=== PATIENT | female | born 1945 | race Caucasian/White ===

== ENCOUNTER 2019-04-23 17:32 | Emergency (ER) | payer MEDICARE ==
[2019-04-23 17:39] VITALS: BP 146/74; PULSE 63; RESP 18; TEMP 97.9
--- NOTE | 2019-04-23 18:20 | XR ---
EXAMINATION TYPE: XR shoulder complete RT DATE OF EXAM: 04/23/2019 COMPARISON: NONE HISTORY: Pain TECHNIQUE: 3 views FINDINGS: There is a pain in the greater tuberosity of the humerus. Glenohumeral joint is anatomic. I see no fracture nor dislocation. IMPRESSION: Previous surgery. No acute abnormality of the right shoulder.
--- NOTE | 2019-04-23 18:54 | ED ---
General Adult HPI - General Chief complaint: Extremity Injury, Upper Stated complaint: Shoulder injury Time Seen by Provider: 04/23/19 17:50 Source: patient Mode of arrival: ambulatory Limitations: no limitations - History of Present Illness Initial comments: Patient is 74-year-old female presenting to the emergency department with a chief complaint of right shoulder pain. Patient reports she was washing dishes earlier today when she felt something "snap" and followed by pain. The incident occurred 3 hours ago. Patient reports the pain is located in the medial aspect of the right upper arm and radiates along to the elbow. Patient reports limited range of motion with elbow flexion and has limited range of motion with shoulder abduction above 90. Patient reports pain with palpation along the medial aspect of her right upper arm and is mostly located near the right axilla. Patient denies any numbness or tingling. Patient reports the pain is a 6 and sharp and is dependent on anatomical position. Patient denies taking medication to alleviate the symptoms. - Related Data Allergies Allergy/AdvReac Type Severity Reaction Status Date / Time Penicillins Allergy Unknown Verified 04/23/19 17:39 Review of Systems ROS Statement: Those systems with pertinent positive or pertinent negative responses have been documented in the HPI. ROS Other: All systems not noted in ROS Statement are negative. Past Medical History Past Medical History: Hypertension, Thyroid Disorder History of Any Multi-Drug Resistant Organisms: None Reported Past Surgical History: Appendectomy, Hysterectomy, Joint Replacement, Orthopedic Surgery, Tonsillectomy Additional Past Surgical History / Comment(s): carpel tunnel Past Psychological History: No Psychological Hx Reported Smoking Status: Never smoker Past Alcohol Use History: None Reported Past Drug Use History: None Reported General Exam Limitations: no limitations General appearance: alert, in no apparent distress Head exam: Present: atraumatic, normocephalic, normal inspection Eye exam: Present: normal appearance, PERRL, EOMI Pupils: Present: normal accommodation ENT exam: Present: normal exam, normal oropharynx, mucous membranes moist, TM's normal bilaterally, normal external ear exam Neck exam: Present: normal inspection, full ROM Respiratory exam: Present: normal lung sounds bilaterally Cardiovascular Exam: Present: regular rate, normal rhythm, normal heart sounds Extremities exam: Present: normal inspection (No bulging of the right bicep noted), tenderness (Tenderness along the medial aspect of the right upper arm), normal capillary refill, other (+2 ulnar radial pulses bilaterally.). Absent: full ROM (Limited range of motion with elbow flexion. Limited range of motion right shoulder abduction above 90.) Back exam: Present: normal inspection, full ROM. Absent: CVA tenderness (R), CVA tenderness (L) Neurological exam: Present: alert, oriented X3 Psychiatric exam: Present: normal affect, normal mood Skin exam: Present: warm, intact, normal color Course Vital Signs 04/23/19 17:36 Temperature 97.9 F Pulse Rate 63 Respiratory 18 Rate Blood Pressure 146/74 O2 Sat by Pulse 96 Oximetry Medical Decision Making - Medical Decision Making Patient is 74-year-old female presenting to emergency Department with a chief complaint right shoulder pain. Based on physical examination and history I suspect the patient to have injured her right bicep or coracobrachialis. Patient does have tenderness near the attachment points of those muscles. I didn't see any bulging or bicep muscle, the side of left suspicion of a brachial injury. X-rays unremarkable. Patient advised to alternate between Tylenol and ibuprofen for pain control. Patient given ibuprofen in the ED for pain control. Patient advised to follow with orthopedics for further management. Strict return parameters were thoroughly discussed with patient was understanding and agreeable. Case discussed physician. Disposition Clinical Impression: Arm pain, right Disposition: HOME SELF-CARE Condition: Stable Instructions (If sedation given, give patient instructions): Repairs of the Biceps and Triceps Tendons (DC), Biceps Tenodesis (DC) Additional Instructions: Please follow up with orthopedics. Alternate between Tylenol and ibuprofen for pain control. Please return to emergency department if symptoms worsen. Is patient prescribed a controlled substance at d/c from ED?: No Referrals: Jose F Sandoval MD [Primary Care Provider] - 1-2 days Milton Anand DO [Medical Doctor] - 1-2 days Time of Disposition: 18:53
== END 2019-04-23 19:01 | disposition home or self-care (01) ==
LOC: EC 17:32
DX: M25.511 Pain in right shoulder (principal); Z96.698 Presence of other orthopedic joint implants; Z88.0 Allergy status to penicillin
CPT/HCPCS: 99283

== ENCOUNTER 2019-10-13 12:16 | Day surgery (SDC) | payer MEDICARE ==
[2019-10-07 09:38] VITALS: BMI 40.3
[~2019-10-13 12:16] MED LIST: ACETAMINOPHEN TAB 500 MG TAB PO ONE; GABAPENTIN 300 MG CAP PO ONE; HYDROmorphone 0.5 MG/0.5 ML SYRINGE IVP PRN; LIDOCAINE 1% 20 ML VIAL (10MG/ML) FOR IV START INTRADERMA PRN; MELOXICAM 7.5 MG TAB PO ONE; ONDANSETRON 4 MG/2 ML VIAL IVP ONE; ROPIVACAINE 246.25 MG, EPINEPHrine 0.5 MG, KETOROLAC 30 MG, cloNIDine HCL/PF 80 MCG, WA... MISCELLANE ONE; TRANEXAMIC ACID 1,000 MG in SODIUM CHLORIDE 0.9% 100 ML IVPB ONE
[2019-10-13] MEDS: LACTATED RINGERS 1,000 ML IV SCH ×2 (12:49→20:14)
[2019-10-13] MEDS ORDERED: DEXAMETHASONE SOD PHOSPHATE 10 MG/ML 1 ML VIAL IV ONE (12:49)
[2019-10-13] MEDS ORDERED: MIDAZOLAM 2 MG/2 ML VIAL IVP ONE (13:04)
[2019-10-13] MEDS ORDERED: fentaNYL (PF) 50 MCG/ML 2 ML AMP IVP ONE (13:05)
[2019-10-13] MEDS ORDERED: ROPIVACAINE 0.2%-NS ON-Q PUMP 1,090 MG, EMPTY PAIN BALL 1 EACH MISCELLANE PRN (13:33)
--- NOTE | 2019-10-13 13:35 | P.ANPRN ---
Procedure Note - Anesthesia - Nerve Block Performed Left Adductor Canal Infusion Time Out Performed: Yes Date of Procedure: 10/13/19 Procedure Start Time: 13:05 Procedure Stop Time: 13:14 Location of Patient: PreOp Indication: Acute Post-Operative Pain, Requested by Surgeon Specifically requested for management of pain by : Barry Rob Sedation Type: Sedate with meaningful contact maintained Preparation: Sterile Prep Position: Supine Catheter Depth at Skin (cm): 8 Catheter: Indwelling Needle Types: Pajunk Needle Gauge: 18 Ultrasound used to visualize needle placement: Yes Ultrasound used to observe medication spread: Yes Injectate: 0.5% Ropivacaine (see comment for volume) (20cc) Blood Aspirated: No Pain Paresthesia on Injection Noted: No Resistance on Injection: Normal Image Stored and Saved: Yes Events: Uneventful and Well Tolerated
[2019-10-13] MEDS ORDERED: SODIUM CHLORIDE 0.9% 100 ML BAG ONE (14:08)
[2019-10-13] MEDS ORDERED: diphenhydrAMINE 50 MG/ML 1 ML VIAL ONE (14:08)
[2019-10-13] MEDS ORDERED: KETAMINE 10 MG/ML 20 ML VIAL ONE (14:08)
[2019-10-13] MEDS ORDERED: TRANEXAMIC ACID 1,000 MG/10 ML VIAL ONE (14:08)
[2019-10-13] MEDS ORDERED: PROPOFOL 10 MG/ML 20 ML VIAL IV ONE (14:08)
[2019-10-13] MEDS ORDERED: fentaNYL (PF) 50 MCG/ML 2 ML AMP ONE (14:08)
[2019-10-13] MEDS ORDERED: MIDAZOLAM 2 MG/2 ML VIAL ONE (14:08)
--- NOTE | 2019-10-13 15:48 | P.OP ---
Date of Procedure: 10/13/19 Preoperative Diagnosis: Severe osteoarthritis left knee Postoperative Diagnosis: Severe osteoarthritis left knee Procedure(s) Performed: Left total knee arthroplasty using Visionaire patient specific guides Implants: Pak and Nephew Cruciate Retaining Journey II CR Oxinium Femoral Component size 6, left Pak & Nephew Journey Nonporous Tibial Baseplate size 4, left Pak & Nephew Journey II CR, XLPE Articular Insert, 9 mm, size 3-4 Pak & Nephew Merry II Resurfacing Patellar Component, Oval, 29 mm All components were cemented using Palacose R bone cement. Visionaire patient specific guides The articulation is Oxinium on polyethylene. Anesthesia: spinal Surgeon: Barry Rob Head Turbine Operator #1: Aysha Bello Estimated Blood Loss (ml): 25 Pathology: other (Bone and cartilage) Condition: stable Disposition: PACU Indications for Procedure: After failure of conservative treatment we discussed the surgical and nonsurgical treatment options at length. Patient wishes to proceed with a total knee arthroplasty. Complications specific to this procedure were discussed at length, including but not limited to infection, bleeding, stiffness, and nerve injury. Patient is aware of all these complications and informed consent was obtained Operative Findings: The operative findings are consistent with severe osteoarthritis of the left knee Description of Procedure: Patient was seen in the preoperative area consent was reviewed and operative site was marked with a skin marker. An adductor canal pain catheter was placed by anesthesia in the preoperative area. Patient was then brought to the operating room and given preoperative antibiotics intravenously. A spinal anesthetic was administered by the anesthesia department. A tourniquet was plac ed on the upper thigh and the lower extremity was prepped and draped in usual sterile fashion. A gram of transexamic acid was given. A universal timeout was then performed which confirmed the patient's name, surgical site, ALLERGIES, and consent. The lower extremity was then exsanguinated and tourniquet was inflated to 250 mmHg. A standard and anterior midline approach to the knee was performed. The skin and subcutaneous tissue was dissected down to the patellar tendon. A medial parapatellar arthrotomy was then performed. The knee was then extended, the patellar was everted, and the knee was again flexed. Anterior horns of both menisci were excised, and a release was performed to the posterior medial aspect of the knee. On gross visual inspection, there was complete loss of articular cartilage in the medial and patellofemoral joint spaces. There was also significant cartilage damage in the lateral compartment. There were multiple periarticular osteophytes. The patient specific guide was placed on the distal femur, and pinned in place. Using the patient specific guide, the distal femoral cut was performed. The cutting block was then removed and the cut was checked for flatness. The appropriate 5-in-1 cutting block was then pinned in place through the holes that were drilled through the patient specific guide. The anterior condyles were cut without notching. The posterior and chamfer cuts were performed while protecting the collateral ligaments. The cutting block was then removed. Attention was then directed to the tibia. The remaining ACL was removed with a Ronguer, and the tibia was then gently subluxed forward with a large bent knee retractor. Any remaining menisci was excised. The posterior lateral corner was cauterized in order to cauterize the lateral geniculate artery. The patient specific guide for the tibia was then placed and was held in place with pins. Pinholes were then placed for rotation of the tibial component as well. Proximal tibia was then cut and sized. Next trials were then placed with the appropriate-sized insert. The knee was able to fully extend and flex to 130 and was stable throughout all range of motion. The knee was then extended, patella everted. Patella was then measured, and then using an osteotomy guide, the patella was cut at the appropriate level. The patella was then measured and drilled and the patella trial was then placed. The knee was then taken through range of motion with the patella trial and the patella tracked normally. The knee was then extended patella trial was then removed and the patella was everted. Knee was then flexed and lug holes were drilled through the femoral trial and the femoral trial was then removed. The tibial was then exposed, and the tibial broach guide was then pinned in place after it was set for the appropriate rotation to allow for the most coverage without overhang. The tibia was then reamed and broached. The cut surfaces of bone were then irrigated with pulsatile lavage. The posterior structures were injected with the ropivacaine solution. The knee was also irrigated with Irrisept solution. The components were then opened, the cement was mixed, and the components were then cemented in place. The cement was allowed to harden with the knee in full extension. While the cement was hardening, the remaining soft tissues were then injected with a ropivacaine solution, which consisted of 246.25 mg of ropivacaine, 0.5 mg of epinephrine, 30 mg of Toradol, 80 g of clonidine, and 48.45 mL of sterile water, for a total of 100 mL of fluid injected. After the cemented hardened. The tourniquet was released, and hemostasis was obtained. A second gram of transexamic acid was given. The knee was again irrigated. The knee was again taken through range of motion and found to be stable throughout all range of motion of 0-130, and the patella tracked normally. The fascia was then closed with #2 strata fix suture. The subcutaneous tissue was closed with 3-0 Vicryl and 3-0 strata fix. Dermabond glue was used for the skin and placed with the knee in flexion. The patient was placed in a sterile silver dressing. Patient was then transferred to recovery room in stable condition. The construction administrative assistant Aysha Bello NP was required due the complexity surgery and the need for a skilled accountant assistant. She assisted in positioning, draping, retraction, and closure of the wound.
[2019-10-13] MEDS ORDERED: LACTATED RINGERS 1,000 ML IV ONE (15:55)
[2019-10-13] MEDS ORDERED: TEMAZEPAM 15 MG CAP PO PRN (16:14)
[2019-10-13] MEDS ORDERED: ONDANSETRON 4 MG/2 ML VIAL IVP PRN (16:14)
[2019-10-13] MEDS ORDERED: BISACODYL 10 MG SUPP RECTAL PRN (16:14)
[2019-10-13] MEDS ORDERED: HYDROmorphone 0.5 MG/0.5 ML SYRINGE IVP PRN ×3 (16:14)
[2019-10-13] MEDS ORDERED: NA PHOS,M-B/NA PHOS,DI-BA 133 ML ENEMA RECTAL PRN (16:14)
[2019-10-13] MEDS ORDERED: HYDROcodone/APAP 5-325MG 1 EACH TAB PO PRN (16:14)
[2019-10-13] MEDS ORDERED: MAGNESIUM HYDROXIDE 2,400 MG/10 ML CUP PO PRN (16:14)
[2019-10-13] MEDS ORDERED: hydrOXYzine PAMOATE 25 MG CAP PO PRN (16:14)
[2019-10-13] MEDS ORDERED: NALOXONE 0.4 MG/ML 1 ML VIAL IV PRN (16:14)
--- NOTE | 2019-10-13 16:37 | XR ---
EXAMINATION TYPE: XR knee limited LT DATE OF EXAM: 10/13/2019 COMPARISON: NONE HISTORY: 74-year-old female status post DKA, assess surgical alignment TECHNIQUE: None FINDINGS: Images show placement of left total knee arthroplasty. The distal femoral and proximal tibial compone nts of the prosthesis are well seated without periprosthetic fracture. Anterior soft tissue swelling with scattered soft tissue air as well as intra-articular air compatible with recent operation. Align ment grossly anatomic. IMPRESSION: Uncomplicated postoperative appearance left total knee arthroplasty.
[2019-10-13] MEDS: ASPIRIN 325 MG TAB PO SCH (20:26)
[2019-10-13] MEDS: HYDROcodone/APAP 5-325MG 1 EACH TAB PO PRN (20:27)
[2019-10-13] MEDS ORDERED: SENNOSIDES-DOCUSATE SODIUM 1 EACH TAB PO SCH (21:00)
[2019-10-13] MEDS ORDERED: METOPROLOL TARTRATE 50 MG TAB PO SCH (21:00)
[2019-10-14] MEDS: LACTATED RINGERS 1,000 ML IV SCH ×3 (02:20→06:21)
[2019-10-14 03:34] VITALS: TEMP 97.9
[2019-10-14] MEDS ORDERED: LEVOTHYROXINE 137 MCG TAB PO SCH (06:30)
[2019-10-14 07:40] VITALS: BP 126/70; PULSE 66; RESP 16
[2019-10-14] MEDS: ASPIRIN 325 MG TAB PO SCH (08:18)
[2019-10-14] MEDS: HYDROcodone/APAP 5-325MG 1 EACH TAB PO PRN ×2 (08:18→12:18)
--- NOTE | 2019-10-14 08:31 | P.DS ---
Providers Expected date of discharge: 10/14/19 Attending physician: Barry Rob Consults: 10/13/19 16:14 Consult Physician Routine Consulting Provider: Carmenza Quinones Consult Reason/Comments: medical management Do you want consulting provider notified?: Yes Primary care physician: Jose F Sandoval - Discharge Diagnosis(es) (1) Primary osteoarthritis of left knee Current Visit: Yes Status: Acute (2) Status post left knee replacement Current Visit: Yes Status: Acute Hospital Course: This is a pleasant 74-year-old female last seen in our office with complaints of left knee pain. Patient has known history of degenerative arthritis of the left knee and presented to discuss options. After discussion and consideration, the patient elected to proceed with a left total knee arthroplasty. Patient was seen preoperatively, and medically cleared for surgery by her primary care physician. Patient was admitted to [facility] underwent left total knee arthroplasty on 10/13/[address] Barry Rob. The procedure was performed without complications or sequelae. The patient is seen and evaluated at bedside today. Pain is well-controlled. Patient has no new complaints today and denies any fevers, chills, nausea, vomiting, or shortness of breath. Vital signs are stable. Dressing is clean dry and intact. Incision looks fine with no erythema or active drainage. Calf is soft and nontender. Patient has full foot and ankle motion without difficulty. Patient's left lower extremity is neurovascularly intact. The patient is orthopedically stable for discharge today. Pertinent Studies: Laboratory Tests 10/14/19 07:51 WBC 21.0 H RBC 4.19 Hgb 12.6 Hct 39.4 Neutrophils # 17.9 H Monocytes # 1.3 H Patient Condition at Discharge: Stable Plan - Discharge Summary Discharge Rx Participant: Yes New Discharge Prescriptions: New Aspirin 325 mg PO BID #60 tab Sennosides-Docusate Sodium [Senokot-S] 2 tab PO DAILY #30 tablet HYDROcodone/APAP 5-325MG [Clifton 5] 1 - 2 each PO Q4-6H PRN #56 tab PRN Reason: Pain No Action Ibuprofen [Motrin] 800 mg PO BID Oxybutynin ER [Ditropan Xl] 15 mg PO QAM Metoprolol Tartrate [Lopressor] 50 mg PO HS Levothyroxine Sodium [Synthroid] 137 mcg PO QAM Vitamin E (Unknown Dose) 1 tab PO BID Lulu-3 Fatty Acids/Fish Oil [Fish Oil 1,000 mg Softgel] 1 each PO BID Hydrochlorothiazide 12.5 mg PO QAM Felodipine [Felodipine ER] 10 mg PO QAM Discharge Medication List Felodipine [Felodipine ER] 10 mg PO QAM 10/07/19 [History] Hydrochlorothiazide 12.5 mg PO QAM 10/07/19 [History] Ibuprofen [Motrin] 800 mg PO BID 10/07/19 [History] Levothyroxine Sodium [Synthroid] 137 mcg PO QAM 10/07/19 [History] Metoprolol Tartrate [Lopressor] 50 mg PO HS 10/07/19 [History] Lulu-3 Fatty Acids/Fish Oil [Fish Oil 1,000 mg Softgel] 1 each PO BID 10/07/19 [History] Oxybutynin ER [Ditropan Xl] 15 mg PO QAM 10/07/19 [History] Vitamin E (Unknown Dose) 1 tab PO BID 10/07/19 [History] Aspirin 325 mg PO BID #60 tab 10/13/19 [Rx] Sennosides-Docusate Sodium [Senokot-S] 2 tab PO DAILY #30 tablet 10/13/19 [Rx] HYDROcodone/APAP 5-325MG [Clifton 5] 1 - 2 each PO Q4-6H PRN #56 tab 10/14/19 [Rx] Follow up Appointment(s)/Referral(s): Jose F Sandoval MD [Primary Care Provider] - 10/21/19 10:30 am [facility], [NON-STAFF] - As Needed Barry Rob DO [Doctor of Osteopathic Medicine] - 10/26/19 9:30 am Ambulatory/Diagnostic Orders: Continuous Passive Motion (CPM) Machine [DME.AMB1] Time Frame: 3 Weeks, Location: None Selected Patient Instructions/Handouts: *Surgery [facility] - On-Q Pain Pump Discharge Instructions, Knee Replacement (DC) Activity/Diet/Wound Care/Special Instructions: Weightbearing as tolerated with walker Keep dressing in place for 10 days unless saturated Aspirin 325 mg twice a day May shower over dressing CPM 5-6 hours daily Follow up with Dr. Barry Rob in 2 weeks. Call [facility] with questions or concerns, Discharge Disposition: HOME WITH HOME HEALTH SERVICES
[2019-10-14 08:52] LABS: Basophils % (A) 0 %; Eosinophils % (A) 0 %; HCT 39.4 % (34.0-46.0); HGB 12.6 gm/dL (11.4-16.0); Lymphocytes # (A) 1.6 k/uL (1.0-4.8); Lymphocytes % (A) 8 %; MCH 30.2 pg (25.0-35.0); MCHC 32.1 g/dL (31.0-37.0); MCV 94.1 fL (80.0-100.0); Monocytes # (A) 1.3 k/uL (0-1.0); Monocytes % (A) 6 %; Neutrophils # (A) 17.9 k/uL (1.3-7.7); Neutrophils % (A) 85 %; Platelet Count 257 k/uL (150-450); RBC 4.19 m/uL (3.80-5.40); RDW 12.6 % (11.5-15.5)
[2019-10-14] MEDS ORDERED: OXYBUTYNIN 15 MG TAB.ER.24 PO SCH (09:00)
[2019-10-14] MEDS ORDERED: amLODIPine 10 MG TAB PO SCH (09:00)
--- NOTE | 2019-10-14 11:34 | P.CONS ---
History of Present Illness - Reason for Consult Recommendations regarding and her present medications-leukocytosis - History of Present Illness Patient is pleasant 74-year-old the female admitted for right knee arthroplasty source N surgery patient is currently doing well is being discharged today. Patient the blood pressure is fairly stable patient was already started on amlodipine asked her to hold off on hydrochlorothiazide as she expected to have low blood pressure for next couple days. She'll hold off this medication for next couple days patient denied any fever chills dysuria cough no evidence of infection patient does have leukocytosis which is secondary to surgery. Review of Systems REVIEW OF SYSTEMS: CONSTITUTIONAL: No fever, no malaise, no fatigue. HEENT: No recent visual problems or hearing problems. Denied any sore throat. CARDIOVASCULAR: No chest pain, orthopnea, PND, no palpitations, no syncope. PULMONARY: No shortness of breath, no cough, no hemoptysis. GASTROINTESTINAL: No diarrhea, no nausea, no vomiting, no abdominal pain. NEUROLOGICAL: No headaches, no weakness, no numbness. HEMATOLOGICAL: Denies any bleeding or petechiae. GENITOURINARY: Denies any burning micturition, frequency, or urgency. MUSCULOSKELETAL/RHEUMATOLOGICAL: Denies any joint pain, swelling, or any muscle pain. ENDOCRINE: Denies any polyuria or polydipsia. The rest of the 14-point review of systems is negative. Past Medical History Past Medical History: Hypertension, Osteoarthritis (OA), Thyroid Disorder Additional Past Medical History / Comment(s): Vasular Dermatitis. Slight Vertigo. History of Any Multi-Drug Resistant Organisms: None Reported Past Surgical History: Appendectomy, Cholecystectomy, Hysterectomy, Joint Replacement, Orthopedic Surgery, Tonsillectomy Additional Past Surgical History / Comment(s): Bilateral carpel tunnel, right shoulder surgery, right foot surgery, right hip replacement. Past Anesthesia/Blood Transfusion Reactions: Previous Problems w/ Anesthesia Additional Past Anesthesia/Blood Transfusion Reaction / Comm: "Anesthesia went too far up and my arms went numb with hip surgery." Past Psychological History: No Psychological Hx Reported Smoking Status: Never smoker Past Alcohol Use History: None Reported Past Drug Use History: None Reported - Past Family History Mother Family Medical History: Cancer Father Family Medical History: Cancer Medications and Allergies Home Medications Medication Instructions Recorded Confirmed Type Felodipine [Felodipine ER] 10 mg PO QAM 10/07/19 10/13/19 History Hydrochlorothiazide 12.5 mg PO QAM 10/07/19 10/07/19 History Ibuprofen [Motrin] 800 mg PO BID 10/07/19 10/07/19 History Levothyroxine Sodium [Synthroid] 137 mcg PO QAM 10/07/19 10/07/19 History Metoprolol Tartrate [Lopressor] 50 mg PO HS 10/07/19 10/13/19 History Glendora-3 Fatty Acids/Fish Oil [Fish 1 each PO BID 10/07/19 10/07/19 History Oil 1,000 mg Softgel] Oxybutynin ER [Ditropan Xl] 15 mg PO QAM 10/07/19 10/13/19 History Vitamin E (Unknown Dose) 1 tab PO BID 10/07/19 10/07/19 History Aspirin 325 mg PO BID #60 tab 10/13/19 Rx Sennosides-Docusate Sodium 2 tab PO DAILY #30 tablet 10/13/19 Rx [Senokot-S] HYDROcodone/APAP 5-325MG [Shannon 5] 1 - 2 each PO Q4-6H PRN #56 tab 10/14/19 Rx Allergies Allergy/AdvReac Type Severity Reaction Status Date / Time Penicillins Allergy Unknown Verified 10/13/19 12:32 Surgical Tape Allergy Rash/Hives Uncoded 10/13/19 12:32 Physical Exam Vitals: Vital Signs Temp Pulse Pulse Resp BP BP BP 10/14/19 09:40 16 10/14/19 07:10 97.9 F 66 16 126/70 10/14/19 02:35 97.9 F 61 18 112/63 10/13/19 19:26 73 112/59 10/13/19 19:10 77 121/69 10/13/19 18:55 72 119/70 10/13/19 18:40 70 119/70 10/13/19 18:26 69 115/65 10/13/19 18:10 70 116/65 10/13/19 17:55 70 104/58 10/13/19 17:42 69 10/13/19 17:25 70 116/67 10/13/19 17:12 97.5 F L 67 109/63 10/13/19 16:45 68 15 108/58 10/13/19 16:30 67 16 97/54 10/13/19 16:24 69 16 98/57 10/13/19 16:09 97.2 F L 70 14 90/52 10/13/19 13:22 61 17 130/60 10/13/19 12:44 97.6 F 70 17 131/63 Pulse Ox 10/14/19 09:40 10/14/19 07:10 92 L 10/14/19 02:35 93 L 10/13/19 19:26 10/13/19 19:10 10/13/19 18:55 95 10/13/19 18:40 95 10/13/19 18:26 95 10/13/19 18:10 94 L 10/13/19 17:55 96 10/13/19 17:42 10/13/19 17:25 97 10/13/19 17:12 92 L 10/13/19 16:45 97 10/13/19 16:30 98 10/13/19 16:24 97 10/13/19 16:09 96 10/13/19 13:22 97 10/13/19 12:44 95 Intake and Output 10/13/19 10/14/19 10/14/19 22:59 06:59 14:59 Intake Total 200 Output Total 350 Balance -150 Intake: IV 200 Output: Urine 325 Estimated Blood Loss 25 Other: # Voids 2 Weight 113.398 kg PHYSICAL EXAMINATION: GENERAL: The patient is alert and oriented x3, not in any acute distress. Well developed, well nourished. HEENT: Pupils are round and equally reacting to light. EOMI. No scleral icterus. No conjunctival pallor. Normocephalic, atraumatic. No pharyngeal erythema. No thyromegaly. CARDIOVASCULAR: S1 and S2 present. No murmurs, rubs, or gallops. PULMONARY: Chest is clear to auscultation, no wheezing or crackles. ABDOMEN: Soft, nontender, nondistended, normoactive bowel sounds. No palpable organomegaly. MUSCULOSKELETAL: No joint swelling or deformity. Deferred to orthopedic surgery EXTREMITIES: No cyanosis, clubbing, or pedal edema. NEUROLOGICAL: Gross neurological examination did not reveal any focal deficits. SKIN: No rashes. Results CBC & Chem 7: 10/14/19 07:51 Labs: Abnormal Lab Results - Last 24 Hours (Table) 02/26/20 Range/Units 07:51 WBC 21.0 H (3.8-10.6) k/uL Neutrophils # 17.9 H (1.3-7.7) k/uL Monocytes # 1.3 H (0-1.0) k/uL Assessment and Plan Plan: -Leukocytosis without any evidence of infection: Patient will not need any further testing and this is reactive secondary to surgery. -Hypertension further management as mentioned above patient can be discharged from medical perspective patient is clinically doing well -Hypothyroidism
--- NOTE | 2019-10-14 13:39 | P.PN ---
Progress Note - Text 10/14 658am 74 year old female s/p tkr by Dr Barry Rob. pt has an on-q pump infusion running at 8cc/hr with a vas of 0. plan to continue infusion.
== END 2019-10-14 12:43 | disposition home health service (06) ==
LOC: OR 12:16 → 4SSUR 16:06 → OR 10-14 12:43
PROVIDERS: ATTEND Orthopaedic Surgery
DX: M17.12 Unilateral primary osteoarthritis, left knee (principal); E03.9 Hypothyroidism, unspecified; I11.9 Hypertensive heart disease without heart failure; E78.5 Hyperlipidemia, unspecified; R42 Dizziness and giddiness; L30.8 Other specified dermatitis; E66.9 Obesity, unspecified; Z68.41 Body mass index [BMI] 40.0-44.9, adult; Z90.710 Acquired absence of both cervix and uterus; Z90.49 Acquired absence of other specified parts of digestive tract; Z96.641 Presence of right artificial hip joint; Z98.890 Other specified postprocedural states; Z97.2 Presence of dental prosthetic device (complete) (partial); Z83.3 Family history of diabetes mellitus; Z82.49 Family history of ischemic heart disease and other diseases of the circulatory system; Z79.1 Long term (current) use of non-steroidal anti-inflammatories (NSAID); Z79.82 Long term (current) use of aspirin; Z79.890 Hormone replacement therapy; Z79.891 Long term (current) use of opiate analgesic; Z79.899 Other long term (current) drug therapy; Z88.6 Allergy status to analgesic agent; Z88.0 Allergy status to penicillin; Z91.09 Other allergy status, other than to drugs and biological substances
CPT/HCPCS: 97161; 64448; 76942; 85025; 88300; 73560; 27447; C1713; C1776; J2250; J0171; J1200; J1100; J0690 ×2; J2405; J3010; J1885; J2795 ×2; J2704; J0735

== ENCOUNTER 2022-06-08 08:41 | Day surgery (SDC) | payer MEDICARE ==
[2022-06-06 12:40] VITALS: BMI 41.5
[~2022-06-08 08:41] MED LIST changes: -ACETAMINOPHEN TAB 500 MG TAB PO ONE; +DEXAMETHASONE SOD PHOSPHATE 4 MG/ML 1 ML VIAL IV ONE; -GABAPENTIN 300 MG CAP PO ONE; +LACTATED RINGERS 1,000 ML IV SCH; -LIDOCAINE 1% 20 ML VIAL (10MG/ML) FOR IV START INTRADERMA PRN; -MELOXICAM 7.5 MG TAB PO ONE; +MIDAZOLAM 2 MG/2 ML VIAL IV PRN; +Pre Op ABX Message 1 EACH MISC MISCELLANE ONE; -ROPIVACAINE 246.25 MG, EPINEPHrine 0.5 MG, KETOROLAC 30 MG, cloNIDine HCL/PF 80 MCG, WA... MISCELLANE ONE; -TRANEXAMIC ACID 1,000 MG in SODIUM CHLORIDE 0.9% 100 ML IVPB ONE
[2022-06-08 09:21] VITALS: TEMP 97.4
[2022-06-08] MEDS ORDERED: LACTATED RINGERS 1,000 ML IV ONE (09:30)
[2022-06-08] MEDS ORDERED: MIDAZOLAM 2 MG/2 ML VIAL IVP ONE (09:37)
[2022-06-08] MEDS ORDERED: fentaNYL (PF) 50 MCG/ML 2 ML AMP IVP ONE (09:37)
[2022-06-08] MEDS ORDERED: SUCCINYLCHOLINE CHLORIDE 200 MG/10 ML VIAL IV ONE (10:09)
[2022-06-08] MEDS ORDERED: SODIUM CHLORIDE 0.9% (PF) 10 ML VIAL ONE (10:09)
[2022-06-08] MEDS ORDERED: fentaNYL (PF) 50 MCG/ML 2 ML AMP ONE (10:09)
[2022-06-08] MEDS ORDERED: MIDAZOLAM 2 MG/2 ML VIAL ONE (10:09)
[2022-06-08] MEDS ORDERED: ROPIVACAINE 5 MG/ML 30 ML VIAL ONE (10:09)
[2022-06-08] MEDS ORDERED: ePHEDrine 50 MG/ML 1 ML VIAL ONE (10:09)
[2022-06-08] MEDS ORDERED: LIDOCAINE 2% INJ 20 MG/ML (2 ML VIAL) ONE (10:09)
[2022-06-08] MEDS ORDERED: PROPOFOL 10 MG/ML 20 ML VIAL IV ONE (10:09)
[2022-06-08] MEDS ORDERED: ceFAZolin 1,000 MG in SODIUM CHLORIDE 0.9% 1,000 ML IRRIGATION ONE (10:14)
[2022-06-08] MEDS ORDERED: SODIUM CHLORIDE 0.9% 50 ML with ceFAZolin 2,000 MG IV ONE ×2 (10:14)
--- NOTE | 2022-06-08 11:28 | P.ANPRN ---
Procedure Note - Anesthesia - Nerve Block Performed Right Popliteal Single Time Out Performed: Yes ([id number]) Date of Procedure: 06/08/22 Procedure Start Time: :37 Procedure Stop Time: :42 Location of Patient: PreOp Indication: Acute Post-Operative Pain, Requested by Surgeon Specifically requested for management of pain by DrJackie: Harsh White Sedation Type: Sedate with meaningful contact maintained Preparation: Sterile Prep Position: Supine Catheter: None Needle Types: Pajunk Needle Gauge: 21 Ultrasound used to visualize needle placement: Yes Ultrasound used to observe medication spread: Yes Injectate: 0.5% Ropivacaine (see comment for volume) (15cc + 10cc nacl pf) Blood Aspirated: No Pain Paresthesia on Injection Noted: No Resistance on Injection: Normal Image Stored and Saved: Yes Events: Uneventful and Well Tolerated
--- NOTE | 2022-06-08 11:29 | P.ANPRN ---
Procedure Note - Anesthesia - Nerve Block Performed Right Adductor Canal Single Time Out Performed: Yes ([id number]) Date of Procedure: 06/08/22 Procedure Start Time: :43 Procedure Stop Time: :45 Location of Patient: PreOp Indication: Acute Post-Operative Pain, Requested by Surgeon Specifically requested for management of pain by DrJackie: Harsh White Sedation Type: Sedate with meaningful contact maintained Preparation: Sterile Prep Position: Supine Catheter: None Needle Types: Pajunk Needle Gauge: 21 Ultrasound used to visualize needle placement: Yes Ultrasound used to observe medication spread: Yes Injectate: 0.5% Ropivacaine (see comment for volume) (15cc+ 10cc nacl pf) Blood Aspirated: No Pain Paresthesia on Injection Noted: No Resistance on Injection: Normal Image Stored and Saved: Yes Events: Uneventful and Well Tolerated
[2022-06-08 12:37] VITALS: BP 124/73; PULSE 66; RESP 18
--- NOTE | 2022-06-15 15:14 | P.OP ---
Date of Procedure: 06/08/22 Preoperative Diagnosis: Peroneal tendinitis right ankle Postoperative Diagnosis: 1. Same 2. Osteophyte right calcaneus Procedure(s) Performed: 1. Secondary repair peroneus longus tendon right ankle 2. Partial excision of bone right calcaneus Implants: None Anesthesia: PRIYANKA Surgeon: Harsh White Estimated Blood Loss (ml): 1 Pathology: none sent Condition: stable Disposition: PACU Description of Procedure: Prior to the patient being brought to the operative room, anesthesia administered nerve block on the right lower extremity. The patient was then brought into the operative room and placed on table supine position. Timeout was taken to confirm correct patient identifiers, correct the laterality of surgery, and correct procedure. When all staff in the room were in agreement with the timeout, the patient was induced and placed under general anesthesia. A well-padded tourniquet was placed on the right thigh and a bump underneath the right hip to internally rotate the right leg. The right foot was then prepped and draped usual manner. Attention was directed over the lateral aspect of the ankle where an incision was made over the peroneal tendons from just proximal to the tip of the fibula to the anterior process of the calcaneus. The incision was deepened down to the subcutaneous layer, careful to identify, avoid, and retract any neurovascular structures and cauterize any bleeding vessels. Blunt dissection was continued down to the level the peroneal tendon sheath. The peroneal tendon sheath was opened along the entire length of the skin incision but not including the gil over the peroneal tubercle on the calcaneus. Immediately noticed just distal to the peroneal tubercle of the calcaneus, was a large osseous fragment that was adhered was soft tissue to the anterior process the calcaneus. This portion of bone glide between the peroneal tendons. The peroneal tendons were retracted and the bony fragment carefully excised. There were no roughened edges on the lateral side of the anterior process of the calcaneus and when indicated all fracture or an osteophyte. Then both peroneal tendons were inspected proximal to the peroneal tubercle. There was a small split longitudinal tear with some thickening of the Proteus longus tendon. The peroneus brevis tendon showed no pathology. Therefore the abnormal tissue was sharply debrided with a scalpel for the Proteus longus tendon. 2-0 Vicryl was then used to re-tubularize the tendon. Both tendons were placed back in the peroneal groove of the fibula and then the ankle taken through range of motion. There was smooth excursion of the tendons to the area with no subluxation. The wound is thoroughly irrigated with antibiotic saline. The peroneal retinaculum was repaired first with 0 Vicryl. Once that was completed the peroneal tendons taken through range of motion and make sure that they were fully locked into the peroneal groove. Once satisfied that there were properly repaired the rest of the retinaculum was closed with 0 Vicryl. Subcutaneous closure was done with 4-0 Monocryl and skin closure done with 3-0 Stratafix in a running subarticular manner dermal glue and Steri- Strips are placed across incision. An Arthrex jumpstart dressing was placed over the incision and then a dry sterile dressing to the right foot and ankle. The tourniquet was released and capillary refill return to all digits on the right foot. The patient's placed a well-padded, well molded plaster posterior mold/sugar tong splint. Ankle was held in neutral position as it dried. Once dry, anesthesia was reversed and the patient was taken recovery with vital signs stable
== END 2022-06-08 13:15 | disposition home or self-care (01) ==
LOC: OR 08:41
PROVIDERS: ATTEND Podiatrist
DX: M76.71 Peroneal tendinitis, right leg (principal); G89.18 Other acute postprocedural pain; M25.774 Osteophyte, right foot; I10 Essential (primary) hypertension; N28.9 Disorder of kidney and ureter, unspecified; E78.5 Hyperlipidemia, unspecified; E03.9 Hypothyroidism, unspecified; R21 Rash and other nonspecific skin eruption; R42 Dizziness and giddiness; Z79.899 Other long term (current) drug therapy; Z88.0 Allergy status to penicillin; Z88.5 Allergy status to narcotic agent; Z91.040 Latex allergy status; Z98.890 Other specified postprocedural states; Z90.49 Acquired absence of other specified parts of digestive tract; Z90.710 Acquired absence of both cervix and uterus; Z83.3 Family history of diabetes mellitus; Z82.49 Family history of ischemic heart disease and other diseases of the circulatory system
CPT/HCPCS: 28200; 28120; 64447; 64445; 76942; J2250; J0330; J1100; J2405; J0690; J3010; J2795; J2704; J2001

== ENCOUNTER 2022-09-06 23:04 | Emergency (ER) | payer MEDICARE ==
[2022-09-06 23:13] VITALS: RESP 18; TEMP 97.5
[2022-09-06] MEDS ORDERED: MORPHINE SULFATE 4 MG/ML SYRINGE IM STA (23:35)
[2022-09-06] MEDS ORDERED: KETOROLAC 15 MG/ML 1 ML VIAL IVP STA (23:35)
--- NOTE | 2022-09-07 00:03 | ED ---
General Adult HPI - General Chief complaint: Back Pain/Injury Stated complaint: Back Pain Time Seen by Provider: 09/06/22 23:25 Source: patient, RN notes reviewed, old records reviewed Mode of arrival: ambulatory Limitations: no limitations - History of Present Illness Initial comments: Patient is a 77 year old female with past medical history remarkable for hypertension, chronic sciatica who presents emergency Department complaining of lower back pain, sciatica pain. Was seen in a another emergency department yesterday with similar complaint. Was discharged home on [place], steroids, Flexeril. Instructed follow up with PCP. States her pain is worsened at this time. Denies any lower extremity weakness. Denies any bladder or bowel incontinence or retention. Denies any saddle anesthesia. States the pain is worse with standing up straight and is relieved when sitting or bending forward. Denies any numbness or weakness of the lower extremities. No other acute complaint at this time. No recent trauma. Does have a history of sciatica down the right leg but not on the left. Presents for further evaluation at this time.Describes the pain as a shooting pain from her lower spine down the posterior aspect of both legs to her knees. - Related Data Home Medications Medication Instructions Recorded Confirmed Felodipine [Felodipine ER] 10 mg PO QAM 10/07/19 06/08/22 Ibuprofen [Motrin] 800 mg PO BID 10/07/19 06/08/22 Oxybutynin ER [Ditropan Xl] 15 mg PO QAM 10/07/19 06/08/22 hydroCHLOROthiazide 12.5 mg PO QAM 10/07/19 06/08/22 Acetaminophen [Tylenol Extra 1,500 mg PO BID 06/06/22 06/08/22 Strength] Aspirin [Adult Low Dose Aspirin EC] 81 mg PO DAILY 06/06/22 06/06/22 Biotin [Biotin Disolve] 10,000 mcg PO 06/06/22 Cholecalciferol (Vitamin D3) 125 mcg PO DAILY 06/06/22 06/06/22 [Vitamin D3 (125 MCG = 5,000 IU)] Ferrous Sulfate [Feosol] 325 mg PO DAILY 06/06/22 06/08/22 Fish Oil/Dha/Epa [Fish Oil 1,200 1 each PO BID 06/06/22 06/06/22 mg Fish Oil] Levothyroxine Sodium 112 mcg PO DAILY 06/06/22 06/06/22 Magnesium 400 mg PO BID 06/06/22 06/06/22 Metoprolol Tartrate [Lopressor] 25 mg PO HS 06/06/22 06/08/22 Vitamin E (Dl,Tocopheryl Acet) 400 unit PO DAILY 06/06/22 06/06/22 [Vitamin E (400 Iu = 180 mg)] Previous Rx's Medication Instructions Recorded HYDROcodone/APAP 5-325MG [[place] 1 tab PO Q6HR PRN #28 tab 06/08/22 5-325] Allergies Allergy/AdvReac Type Severity Reaction Status Date / Time adhesive tape Allergy blisters Verified 06/08/22 09:06 celecoxib [From Celebrex] Allergy Rash/Hives Verified 06/08/22 09:06 Penicillins Allergy Rash/Hives Verified 06/08/22 09:06 Surgical Tape Allergy blisters Uncoded 06/08/22 09:06 Review of Systems ROS Statement: Those systems with pertinent positive or pertinent negative responses have been documented in the HPI. Review of Systems: CONST: Denies fever EYES: Denies blurry vision ENT: Denies nasal congestion C/V: Denies Chest pain RESP: Denies shortness of breath GI: Denies abdominal pain : Denies dysuria SKIN: Denies rash. MSK: Endorses atraumatic back pain. NEURO: Denies headache ROS Other: All systems not noted in ROS Statement are negative. Past Medical History Past Medical History: Hypertension, Osteoarthritis (OA), Thyroid Disorder Additional Past Medical History / Comment(s): heart murmur, anemia, right foot swollen and painful., dish arthritis. History of Any Multi-Drug Resistant Organisms: None Reported Past Surgical History: Appendectomy, Cholecystectomy, Hernia Repair, Hysterectomy, Joint Replacement, Orthopedic Surgery, Tonsillectomy Additional Past Surgical History / Comment(s): carpel tunnel, hernia repair after gall bladder surgery., right rotator cuff repair, right foot surgery. Past Anesthesia/Blood Transfusion Reactions: No Reported Reaction Past Psychological History: No Psychological Hx Reported Smoking Status: Never smoker Past Alcohol Use History: Rare Past Drug Use History: None Reported - Past Family History Mother Family Medical History: Cancer Father Family Medical History: Cancer General Exam - General Exam Comments Initial Comments: General: Appears in mild distress secondary to back pain. HEAD: Normal with no signs of head trauma. EYES: PERRLA, EOMI, conjunctiva normal, no discharge. ENT: Hearing grossly intact, normal oropharynx. RESPIRATORY: Clear breath sounds bilaterally. No respiratory distress. C/V: Regular rate and rhythm. S1 and S2 auscultated. Peripheral pulses 2+ and intact throughout. ABD: Abd is soft, nontender, nondistended EXT: Normal range of motion, no obvious deformity. Tenderness palpation across the lower lumbar spine and to the bilateral gluteus muscles. Pain radiates down the posterior aspect of her legs to her knees. SKIN: No rashes or lesions observed on exposed skin. NEURO: Alert and oriented x 4. Cranial nerves II-XII intact. No focal sensory or strength deficits. Able to ambulate. GCS 15. Limitations: no limitations Course Vital Signs 09/06/22 23:10 Temperature 97.5 F L Pulse Rate 65 Respiratory 18 Rate Blood Pressure 155/92 O2 Sat by Pulse 96 Oximetry Medical Decision Making - Medical Decision Making Based on the patient's presentation and physical exam, and concern for what sounds like sciatica pain bilaterally. She has no red flag symptoms to suggest cauda equina syndrome at this time. We will obtain CT imaging of the lumbar spine as well as provide analgesic medications. Patient was in agreement this plan. Vital signs within acceptable limits. Patient's imaging returned remarkable for significant degenerative disc disease, as well as spinal stenosis from L1 to L5. I did the patient. Pain is better controlled at this time. I discussed her workup. I believe she is likely having some sciatica bilaterally. I believe it is safe for her to be discharged at this time as she has no evidence of cauda equina syndrome. She was in agreement this plan. She'll follow with Dr. Hcetor who is known to her. She already has [place], muscle relaxers, steroids at home prescribed by another physician. I will give her a single dose of gabapentin as well as a lidocaine patch for discharge. She was in agreement this plan. Strict return precautions were discussed. I instructed the patient to follow up with their PCP in the next 1-3 days. I explained that the patient should return to the emergency department if they experience any worsening symptoms. Strict return precautions were discussed with the patient. The patient expressed understanding of these instructions. I answered all questions that the patient had. The patient was discharged home in good condition with their prescriptions and follow up information. Was pt. sent in by a medical professional or institution (JERARDO Hannon, [employer], urgent care, hospital, or assisted...) When possible be specific @ -No Did you speak to anyone other than the patient for history (EMS, parent, family, police, friend...)? What history was obtained from this source @ -No Did you review nursing and triage notes (agree or disagree)? Why? @ -I reviewed and agree with nursing and triage notes Were old charts reviewed (outside hosp., previous admission, EMS record, old EKG, old radiological studies, urgent care reports/EKG's, assisted records)? Report findings @ -No old charts were reviewed Differential Diagnosis (chest pain, altered mental status, abdominal pain women, abdominal pain men, vaginal bleeding, weakness, fever, dyspnea, syncope, headache, dizziness, GI bleed, back pain, seizure, CVA, palpatations, mental health)? @ -Cauda equina syndrome, nerve compression, muscle strain, sciatica. This list is not all inclusive. EKG interpreted by me (3pts min.). @ -None done. X-rays interpreted by me (1pt min.). @ -None done CT interpreted by me (1pt min.). @ -CT lumbar spine shows degenerative changes, as well as spinal canal stenosis of the lumbar spine. U/S interpreted by me (1pt. min.). @ -None done What testing was considered but not performed or refused? (CT, X-rays, U/S, labs)? Why? @ -None What meds were considered but not given or refused? Why? @ -None Did you discuss the management of the patient with other professionals (professionals i.e. JERARDO Hannon, [employer]ER, lab, RT, psych nurse, social services designee, centerpuncher, teacher, airport operations officer, case checker)? Give summary @ -No Was smoking cessation discussed for >3mins.? @ -No Was critical care preformed (if so, how long)? @ -No Were there social determinants of health that impacted care today? How? (Homelessness, low income, unemployed, alcoholism, drug addiction, transportation, low edu. Level, literacy, decrease access to med. care, half-way, rehab)? @ -No Was there de-escalation of care discussed even if they declined (Discuss DNR or withdrawal of care, Hospice)? DNR status @ -No What co-morbidities impacted this encounter? (DM, HTN, Smoking, COPD, CAD, Cancer, CVA, ARF, Chemo, Hep., AIDS, mental health diagnosis, sleep apnea, morbid obesity)? @ -Obesity, history of chronic lumbar spine pain and sciatica Was patient admitted / discharged? Hospital course, mention meds given and route, prescriptions, significant lab abnormalities, going to OR and other pertinent info. @ -Discharged home. See above for ED course. Undiagnosed new problem with uncertain prognosis? @ -No Drug Therapy requiring intensive monitoring for toxicity (Heparin, Nitro, Insulin, Cardizem)? @ -No Were any procedures done? @ -No Diagnosis/symptom? @ -Lower back pain Acute, or Chronic, or Acute on Chronic? @ -Acute on chronic Uncomplicated (without systemic symptoms) or Complicated (systemic symptoms)? @ -Uncomplicated Side effects of treatment? @ -No Exacerbation, Progression, or Severe Exacerbation? @ -No Poses a threat to life or bodily function? How? (Chest pain, [place], [place], pneumonia, PE, COPD, DKA, ARF, appy, cholecystitis, CVA, Diverticulitis, Homicidal, Suicidal, threat to staff... and all critical care pts) @ -No Diagnosis/symptom? @ -Sciatica Acute, or Chronic, or Acute on Chronic? @ -Acute on chronic Uncomplicated (without systemic symptoms) or Complicated (systemic symptoms)? @ -Uncomplicated Side effects of treatment? @ -none Exacerbation, Progression, or Severe Exacerbation] @ -no Poses a threat to life or bodily function? @ -no Disposition Clinical Impression: Lower back pain, Sciatica Disposition: HOME SELF-CARE Condition: Good Instructions (If sedation given, give patient instructions): Acute Low Back Pain (ED) Is patient prescribed a controlled substance at d/c from ED?: No Referrals: Jose F Sandoval MD [Primary Care Provider] - 1-2 days Time of Disposition: 01:20
--- NOTE | 2022-09-07 01:03 | CT ---
EXAMINATION TYPE: CT lumbar spine wo con DATE OF EXAM: 09/07/2022 COMPARISON: None HISTORY: SCIATIC PAIN, NO INJURY CT DLP: 2530 mGycm Automated exposure control for dose reduction was used. Images obtained from T12 to S1 vertebra with no contrast. There is fairly normal alignment of the vertebra. No compression fracture. There is moderate narrowin g of disc spaces throughout the lumbar spine. There is multilevel hypertrophic extensive facet arthro kelby in the mid and lower lumbar spine. No focal bone destruction. No lumbar paraspinal mass. There is extensive spurring and calcification of the posterior endplates at levels L1-2 and L2-3 with significant encroachment on the spinal canal. There is moderately severe spinal stenosis. There is L 3-4 facet arthropathy and ligament thickening and spur formation resulting in moderately severe spina l stenosis. There is similar severe stenosis at L4-5. No significant stenosis at L5-S1. Sacroiliac joints are intact. IMPRESSION: There is severe multilevel lumbar bony spinal stenosis from L1 to L5. No fracture. Extensive spondylo tic changes.
[2022-09-07] MEDS ORDERED: GABAPENTIN 300 MG CAP PO STA (01:28)
[2022-09-07 02:34] VITALS: BP 135/78; PULSE 63
[2022-09-07] MEDS ORDERED: LIDOCAINE 5% PATCH TOPICAL SCH (09:00)
== END 2022-09-07 02:00 | disposition home or self-care (01) ==
LOC: EC 23:04
DX: M54.40 Lumbago with sciatica, unspecified side (principal); I10 Essential (primary) hypertension; E07.9 Disorder of thyroid, unspecified; M19.90 Unspecified osteoarthritis, unspecified site; Z79.890 Hormone replacement therapy; Z79.899 Other long term (current) drug therapy; Z79.1 Long term (current) use of non-steroidal anti-inflammatories (NSAID); Z79.82 Long term (current) use of aspirin; Z88.0 Allergy status to penicillin; Z88.6 Allergy status to analgesic agent
CPT/HCPCS: 72131; 99283; 96374; 96372; J2270; J1885

== ENCOUNTER → 2023-12-04 | Outpatient (CLI) | payer MEDICARE ==
[2023-12-04 10:53] LABS: INR 0.9 (<1.2); Prothrombin Time 10.4 sec (10.0-12.5)
[2023-12-04 10:54] LABS: Partial Thromboplastin Time 25.5 sec (22.0-30.0)
[2023-12-04 15:49] LABS: HGB 13.9 g/dL (12.0-15.0); MCH 30.5 pg (27.0-32.0); MCHC 32.3 g/dL (32.0-37.0); MCV 94.3 FL (80.0-97.0); Mean Platelet Volume 10.7 FL (9.5-12.2); NRBC Per 100 WBC 0 X 10*3/uL (0.00-0.01); Platelet Count 264 X 10*3/uL (140-440); RBC 4.56 X 10*6/uL (4.10-5.20); RDW 12.9 % (11.5-14.5); WBC 8.22 X 10*3/uL (4.50-10.00)
[2023-12-04 16:05] LABS: ALT 23 U/L (8-44); AST 26 U/L (13-35); Albumin 4.5 g/dL (3.8-4.9); Alkaline Phosphatase 74 U/L (41-126); Blood Urea Nitrogen 20.8 mg/dL (9.0-27.0); Calcium 9.8 mg/dL (8.7-10.3); Carbon Dioxide 27.7 mmol/L (21.6-31.8); Chloride 101 mmol/L (96-109); Globulin 2.5 g/dL (1.6-3.3); Glucose 123 mg/dL (70-110); Potassium 4.1 mmol/L (3.5-5.5); Sodium 141 mmol/L (135-145); Total Bilirubin 0.2 mg/dL (0.3-1.2)
== END | disposition home or self-care (01) ==
LOC: LABPAT 10:16
PROVIDERS: ATTEND Orthopaedic Surgery
DX: Z01.818 Encounter for other preprocedural examination (principal); I44.30 Unspecified atrioventricular block; I49.9 Cardiac arrhythmia, unspecified; Z22.322 Carrier or suspected carrier of Methicillin resistant Staphylococcus aureus
CPT/HCPCS: 36415; 80053; 85027; 85610; 85730; 87070; 93005

== ENCOUNTER 2023-12-24 07:07 | Day surgery (SDC) | payer MEDICARE ==
[~2023-12-24 07:07] MED LIST changes: -DEXAMETHASONE SOD PHOSPHATE 4 MG/ML 1 ML VIAL IV ONE; -HYDROmorphone 0.5 MG/0.5 ML SYRINGE IVP PRN; -LACTATED RINGERS 1,000 ML IV SCH; -MIDAZOLAM 2 MG/2 ML VIAL IV PRN; -ONDANSETRON 4 MG/2 ML VIAL IVP ONE; -Pre Op ABX Message 1 EACH MISC MISCELLANE ONE; +TRANEXAMIC 1,000 MG/100ML-NACL 1,000 MG in SALINE 1 100ML.BAG IVPB PRN
[2023-12-24] MEDS: LACTATED RINGERS 1,000 ML IV SCH (08:10)
[2023-12-24] MEDS: MELOXICAM 7.5 MG TAB PO ONE (08:10)
[2023-12-24] MEDS: ACETAMINOPHEN TAB 500 MG TAB ONE (08:10)
[2023-12-24] MEDS: MIDAZOLAM 2 MG/2 ML VIAL IVP ONE (08:19)
--- NOTE | 2023-12-24 08:49 | P.ANPRN ---
Procedure Note - Anesthesia - Nerve Block Performed Right iPack Single Time Out Performed: Yes Date of Procedure: 12/24/23 Procedure Start Time: Procedure Stop Time: Location of Patient: PreOp Indication: Acute Post-Operative Pain, Analgesia, Requested by Surgeon Sedation Type: Sedate with meaningful contact maintained Preparation: Sterile Prep Position: Left Lateral Catheter: None Needle Types: Pajunk Needle Gauge: 21 Ultrasound used to visualize needle placement: Yes Ultrasound used to observe medication spread: Yes Injectate: 0.5% Ropivacaine (see comment for volume) ([id number]+decadron 4 mg) Blood Aspirated: No Pain Paresthesia on Injection Noted: No Resistance on Injection: Normal Image Stored and Saved: Yes Events: Uneventful and Well Tolerated
--- NOTE | 2023-12-24 08:51 | P.ANPRN ---
Procedure Note - Anesthesia - Nerve Block Performed Right Adductor Canal Infusion Time Out Performed: Yes Date of Procedure: 12/24/23 Procedure Start Time: : Procedure Stop Time: :30 Location of Patient: PreOp Indication: Acute Post-Operative Pain, Analgesia, Requested by Surgeon Sedation Type: Sedate with meaningful contact maintained Preparation: Sterile Prep Position: Supine Catheter: Indwelling Needle Types: On-Q Ultrasound used to visualize needle placement: Yes Ultrasound used to observe medication spread: Yes Injectate: 0.5% Ropivacaine (see comment for volume) (Ropiv 15ml +drcadron 4mg) Blood Aspirated: No Pain Paresthesia on Injection Noted: No Resistance on Injection: Normal Image Stored and Saved: Yes Events: Uneventful and Well Tolerated
[2023-12-24] MEDS ORDERED: NALOXONE 0.4 MG/ML 1 ML VIAL IV PRN (08:52)
[2023-12-24] MEDS ORDERED: bisacodyL 10 MG SUPP RECTAL PRN (08:52)
[2023-12-24] MEDS ORDERED: NA PHOS,M-B/NA PHOS,DI-BA 133 ML ENEMA RECTAL PRN (08:52)
[2023-12-24] MEDS ORDERED: HYDROmorphone 0.5 MG/0.5 ML SYRINGE IVP PRN ×3 (08:52)
[2023-12-24] MEDS ORDERED: MAGNESIUM HYDROXIDE 2,400 MG/30 ML CUP PO PRN (08:52)
[2023-12-24] MEDS ORDERED: ONDANSETRON 4 MG/2 ML VIAL IVP PRN (08:52)
[2023-12-24] MEDS ORDERED: HYDROcodone/APAP 7.5-325MG 1 EACH TAB PO PRN (08:54)
[2023-12-24] MEDS ORDERED: NEOSTIGMINE 1 MG/ML 10 ML VIAL ONE (09:12)
[2023-12-24] MEDS ORDERED: fentaNYL (PF) 50 MCG/ML 2 ML AMP ONE (09:12)
[2023-12-24] MEDS ORDERED: TRANEXAMIC 1,000 MG/100ML-NACL PREMIX BAG ONE (09:12)
[2023-12-24] MEDS ORDERED: LIDOCAINE 1% INJ 10MG/ML (20 ML MDV) ONE (09:12)
[2023-12-24] MEDS ORDERED: PROPOFOL 10 MG/ML 20 ML VIAL IV ONE (09:12)
[2023-12-24] MEDS ORDERED: GLYCOPYRROLATE 0.2 MG/ML 2 ML VIAL ONE (09:12)
[2023-12-24] MEDS ORDERED: ROPIVACAINE 5 MG/ML 30 ML VIAL ONE (09:12)
[2023-12-24] MEDS ORDERED: SUCCINYLCHOLINE CHLORIDE 200 MG/10 ML VIAL IV ONE (09:12)
[2023-12-24] MEDS ORDERED: PHENYLEPHRINE-0.9% NACL SYG 1,000 MCG/10 ML SYRINGE ONE (09:12)
[2023-12-24] MEDS ORDERED: DEXAMETHASONE SOD PHOSPHATE 4 MG/ML 1 ML VIAL ONE (09:12)
[2023-12-24] MEDS ORDERED: ROCURONIUM 10 MG/ML (5 ML VIAL) IV ONE (09:12)
--- NOTE | 2023-12-24 10:30 | P.OP ---
Date of Procedure: 12/24/23 Preoperative Diagnosis: severe osteoarthritis right knee Postoperative Diagnosis: severe osteoarthritis right knee Procedure(s) Performed: right total knee arthroplasty Implants: Pak [employer] Nephew Journey II CR Oxinium cruciate retaining femoral component size 6, right [employer] Journey nonporous tibial baseplate size 4, right [employer] Journey II, XLPE Deep Dished articular insert, size 9 mm, Size 3- 4, right [employer] Journey Merry II resurfacing patellar component, oval, 29 mm All components were cemented using Palacos R bone cement The articulation is Oxinium on polyethylene Anesthesia: MONICA Surgeon: Barry Rob Correspondent #1: Miriam Whitfield Estimated Blood Loss (ml): 30 Pathology: none sent Condition: stable Disposition: PACU Indications for Procedure: The patient's knee is end-stage, and conservative management has failed. The operation of knee replacement has been discussed at length in the office, as well as potential risks and complications. These are inclusive of, but not l imited to: Infection, bleeding, scarring, discomfort, stiffness, blood vessel and nerve damage, need for further surgery, failure to relieve symptoms, persistence, recurrence, or worsening of problems, loosening, dislocation, wear, blood clot, pulmonary embolism, , gait dysfunction, stiffness, and other risks as discussed in the office. Patient elects to proceed and the consent form has been signed. Operative Findings: the operative findings are consistent with severe osteoarthritis of the right knee Description of Procedure: The patient was seen in the preoperative area, the consent was reviewed and the operative site was marked with a skin marker. The patient verified the procedure and the operative site. An adductor canal pain catheter and an iPACK block were placed by anesthesia in the preoperative area. The patient was then brought to the operating room and positioned on the operating room table in the supine position. Preoperative antibiotics and a gram of tranexamic acid were given intravenously. A general anesthetic was administered by the anesthesia department. Care was taken to make sure that all pressure points were adequately padded. A tourniquet was placed on the upper thigh and the lower extremity was prepped with ChloraPrep and draped in usual sterile fashion. A universal time-out was then performed which confirmed the patient's name, surgical site, ALLERGIES, and consent. The lower extremity was then exsanguinated and tourniquet was inflated to 250 mmHg. A standard anterior midline approach to the knee was performed. The skin and subcutaneous tissue were sharply dissected down to the patellar tendon. A medial parapatellar arthrotomy was then performed. The knee was then extended, the patellar was everted, and the knee was flexed. The infra-patellar fat pad was removed in order to enhance exposure. The anterior horns of both menisci were excised, and a release was performed to the posterior medial aspect of the knee. On gross visual inspection, there was complete loss of articular cartilage in the medial and patellofemoral joint spaces. There was also significant cartilage damage in the lateral compartment. There were multiple periarticular osteophytes globally about the knee which were then removed with a Ronguer. The femoral canal was then opened with the 9.5 mm intramedullary drill. The 8 mm intramedullary milka was then inserted into the femoral canal with the distal femoral cutting guide set for 5 of valgus. The distal femoral cutting block was then pinned in place. The intramedullary milka was then removed, and the distal femur was then cut. The cutting block was then removed and the cut was checked for symmetry. The resected bone was then measured to confirm the appropriate distal femoral resection. Next, the sizing guide was then placed and set for 3 external rotation based off of the epicondylar axis and [place]'s line. Pins were then placed and the drill holes, and the femur was sized with the sizing stylus. The pins were then removed, and the sizing guide was then removed. The spikes of the appropriate size femoral block was then placed into the predrilled holes, and malleted into place. Two 45 mm pins were then placed into the fixation holes on the cutting block. An efra wing was then used to ensure there would be no notching with the anterior cut. The anterior condyles were cut without notching. The anterior chord cut was then performed, followed by the posterior cut, posterior chamfer cut, and the anterior chamfer cut. The collateral ligaments were protected during the entire process. The cutting block was then removed. Any remaining bone and osteophytes were removed from the femur with a Ronguer. Attention was then directed to the tibia. The remaining ACL was removed with a Ronguer, and the tibia was then gently subluxed forward with a large bent knee retractor. Any remaining menisci were excised. The posterior lateral corner was cauterized in order to coagulate the lateral geniculate artery. The extra medullary tibial cutting guide was then placed, set for the appropriate rotation, slope, and depth of resection. The proximal tibia cutting guide was then pinned in place. Proximal tibia was then cut and sized. A curved osteotome was then used to remove any posterior osteophytes from the distal femur. The femoral trial was placed. A narrow saw blade was then used to remove the anterior intracondylar femoral bone. The CR notch trial was then placed. The tibial trial was placed with the appropriate-sized insert. The knee was able to fully extend and flex to 130 and was stable throughout all range of motion. The knee was then extended and the patella was everted. Patella was then measured, and then using an osteotomy guide, the patella was cut at the appropriate level. The patellar component was sized. The patellar drill guide was placed and the patella was drilled. The patella trial was then placed. The knee was then taken through range of motion with the patella trial and the patella tracked normally using the no thumbs technique. The patella trial was then removed. The knee was then flexed and lug holes were drilled through the femoral trial and the femoral trial was then removed. The tibial was then re- exposed, and the tibial broach guide was then pinned in place after it was set for the appropriate rotation to allow for the most coverage without overhang. The tibia was then reamed and broached. The femoral canal was plugged with autologous bone. The cut surfaces of bone were then irrigated with pulsatile lavage. The knee was also irrigated with Irrisept solution. The components were then opened, the cement was mixed. Cement was placed on the backside of the femoral, tibial, and patellar components. Cement was then applied to the tibial surface and pressurized into the surface using finger pressurization technique. The tibial component was then applied and excess cement was removed after it was impacted securely noted to be flush with the cut surface. In similar fashion, the cement was applied to the cut femoral surface, p ressurized and using finger pressurization the component was impacted in place. Excess cement was removed. The polyethylene spacer was then implanted and locked into position. Patellar component was then applied in a similar technique and the patellar clamp was used to hold patella in place while the cement hardened. The knee was held in full extension while the cement hardened. Once the cement had fully hardened, the knee was reinspected. Any other cement extrusion was removed the final range of motion testing showed range of motion from 0-130 with excellent stability, both medial and laterally and appropriate alignment of the leg. Patella tracked normally. After the cemented hardened, the tourniquet was released and hemostasis was obtained. A second gram of transexamic acid was given intravenously. The knee was again irrigated. The knee was again taken through range of motion and found to be stable throughout all range of motion of 0-130, and the patella tracked normally. The fascia was then closed with 0 Vicryl followed by #2 strata fix suture. The subcutaneous tissue was closed with 3-0 Vicryl and 3-0 strata fix. Exofin glue was used for the skin and placed with the knee in flexion. After the glue had dried, and Optafoam silver impregnated dressing was applied. A lightly compressive dressing was applied using web roll and Artie wrap. Patient was then transferred to the stretcher and taken to recovery room in stable condition. Sponge and needle counts were correct. The nutrition services assistant JERARDO Jeffery was required due the complexity surgery and the need for a skilled melter assistant. She assisted in positioning, draping, retraction, and closure of the wound.
[2023-12-24] MEDS: LACTATED RINGERS 1,000 ML IV ONE (10:50)
[2023-12-24] MEDS: HYDROmorphone 0.5 MG/0.5 ML SYRINGE IVP PRN (11:11)
[2023-12-24] MEDS: ROPIVACAINE 1,100 MG, SODIUM CHLORIDE 0.9% 500 ML 330 ML, EMPTY PAIN BALL 1 EACH MISCELLANE PRN (11:17)
--- NOTE | 2023-12-24 12:19 | XR ---
EXAMINATION TYPE: XR knee limited RT DATE OF EXAM: 12/24/2023 COMPARISON: NONE TECHNIQUE: Two views submitted HISTORY: Post op FINDINGS: There is a prosthetic knee in near anatomic alignment. There is soft tissue edema and soft tissue e mphysema. IMPRESSION: 1. Postoperative change. Appears in near-anatomic alignment
[2023-12-24] MEDS: DEXAMETHASONE SOD PHOSPHATE 4 MG/ML 1 ML VIAL IV ONE (14:00)
[2023-12-24] MEDS: ONDANSETRON 4 MG/2 ML VIAL IVP ONE (14:01)
[2023-12-24] MEDS: SODIUM CHLORIDE 0.9% 1,000 ML IV SCH (14:01)
[2023-12-24] MEDS: HYDROcodone/APAP 7.5-325MG 1 EACH TAB PO PRN (14:13)
[2023-12-24] MEDS: SENNOSIDES-DOCUSATE SODIUM 1 EACH TAB PO SCH (20:48)
[2023-12-24] MEDS: METOPROLOL TARTRATE 25 MG TAB PO SCH (20:48)
[2023-12-24] MEDS: ASPIRIN 325 MG TAB PO SCH (20:48)
--- NOTE | 2023-12-24 20:57 | P.CONS ---
History of Present Illness - Reason for Consult Consult date: 12/24/23 Medical management - Chief Complaint Right knee total arthroplasty - History of Present Illness Patient is a 78-year-old female with past medical history of hypertension, hypothyroidism, palpitations, osteoarthritis and history of back surgery and left hip and left knee replacement admitted to hospital for elective right total knee arthroplasty. Patient is s/p right total knee arthroplasty today due to severe osteoarthritis. Currently patient is resting in the bed. Was able to ambulate to the bathroom with support. No complaints of nausea or vomiting. No fever no chills. No chest pain or shortness of breath. Postoperatively blood pressure is 106 over 64 mmHg pulse 64 respiration 17 pulse ox 95% on room air. Otherwise denies any recent illnesses or sick contacts. Laboratory data is not available at this time. Review of Systems Constitutional: Patient denies any fever or chills . No generalized weakness or weight loss. Abdomen: Patient denied nausea vomiting and diarrhea and abdominal pain. Cardiovascular: Patient denies any chest pain or short of breath no palpitations. Respiratory: patient denied any cough is from production. No shortness of breath Neurologic: Patient denied any numbness or tingling headache. Musculoskeletal: Patient denies any complaints of joint swelling or deformity. Skin: Negative Psychiatric: Negative Endocrine: No heat or cold intolerance. No recent weight gain. Genitourinary: No dysuria or hematuria. All other 14 point ROS negative except the above Past Medical History Past Medical History: Hypertension, Osteoarthritis (OA), Thyroid Disorder Additional Past Medical History / Comment(s): hx. palpitations, anemia, History of Any Multi-Drug Resistant Organisms: None Reported Past Surgical History: Appendectomy, Back Surgery, Cholecystectomy, Hernia Repair, Hysterectomy, Joint Replacement, Orthopedic Surgery, Tonsillectomy Additional Past Surgical History / Comment(s): carpel tunnel, hernia repair after gall bladder surgery., right rotator cuff repair, right foot surgery, lumbar fusion 2022, right hip & left knee replaced Past Anesthesia/Blood Transfusion Reactions: No Reported Reaction Smoking Status: Never smoker - Past Family History Mother Family Medical History: Cancer Father Family Medical History: Cancer Medications and Allergies Home Medications Medication Instructions Recorded Confirmed Type Oxybutynin ER [Ditropan XL] 15 mg PO QAM 10/07/19 12/24/23 History Levothyroxine Sodium 112 mcg PO DAILY 06/06/22 12/24/23 History Cholecalciferol [Vitamin D3 (25 50 mcg PO DAILY tab 09/24/22 12/24/23 Rx Mcg = 1000 Iu)] Aspirin 81 mg PO DAILY 12/20/23 12/24/23 History Biotin [Biotin Disolve] 5,000 mcg PO DAILY 12/20/23 12/24/23 History Felodipine [Plendil] 10 mg PO DAILY 12/20/23 12/24/23 History Ferrous Sulfate [Iron (65 MG 325 mg PO DAILY 12/20/23 12/24/23 History Elemental)] Ibuprofen [Motrin] 800 mg PO BID 12/20/23 12/24/23 History Magnesium 200 mg PO HS 12/20/23 12/24/23 History Metoprolol Tartrate [Lopressor] 25 mg PO HS 12/20/23 12/24/23 History [place]-3/Dha/Epa/Fish Oil [Fish Oil 1 each PO DAILY 12/20/23 12/24/23 History 1,000 mg Softgel] Vitamin E (Dl,Tocopheryl Acet) 45 mg PO DAILY 12/20/23 12/24/23 History [Vitamin E (100 Iu = 45MG)] hydroCHLOROthiazide [Hydrodiuril] 12.5 mg PO DAILY 12/20/23 12/24/23 History Aspirin 325 mg PO BID #60 tab 12/24/23 Rx HYDROcodone/APAP 7.5-325MG [[place] 1 - 2 tab PO Q6H PRN #32 tab 12/24/23 Rx 7.5-325] Sennosides [Senokot] 2 tab PO DAILY PRN #60 tablet 12/24/23 Rx Allergies Allergy/AdvReac Type Severity Reaction Status Date / Time adhesive tape Allergy blisters Verified 12/20/23 09:28 celecoxib [From Celebrex] Allergy Rash/Hives Verified 12/20/23 09:28 gabapentin [From Neurontin] Allergy Swelling Verified 12/24/23 08:56 Penicillins Allergy Rash/Hives Verified 12/20/23 09:28 Surgical Tape Allergy blisters Uncoded 12/20/23 09:28 Physical Exam Vitals: Vital Signs Temp Pulse Resp BP Pulse Ox 12/24/23 12:45 62 14 122/64 96 12/24/23 12:30 61 14 110/59 98 12/24/23 12:15 54 L 14 120/65 98 12/24/23 12:00 59 L 16 128/62 95 12/24/23 11:45 59 L 16 132/61 98 12/24/23 11:30 97 16 138/63 98 12/24/23 11:15 100 18 140/73 96 12/24/23 11:00 98.6 F 95 18 120/63 96 12/24/23 08:56 57 L 18 120/63 96 12/24/23 08:13 97 F L 68 20 142/72 95 Intake and Output 12/23/23 12/24/23 12/24/23 22:59 06:59 14:59 Intake Total 1400 Output Total 30 Balance 1370 Intake: IV 1400 Output: Estimated Blood Loss 30 Other: Weight 112.4 kg PHYSICAL EXAMINATION: Patient is lying in the bed comfortably, no acute distress, awake alert and oriented.. HEENT: Normocephalic. Neck is supple. Pupils reactive. Nostrils clear. Oral cavity is moist. Neck reveals no JVD, carotid bruits, or thyromegaly. CHEST EXAMINATION: Trachea is central. Symmetrical expansion. Lung call clear to auscultation and percussion. CARDIAC: Normal S1, S2 with no gallops. No murmurs ABDOMEN: Soft. Bowel sounds normal. No organomegaly. No abdominal bruits. Extremities: reveal no edema. No clubbing or cyanosis Neurologically awake, alert, oriented x3 with well-coordinated movements. No focal deficits noted Skin: No rash or skin lesions. Psychiatric: Coperative. Nonsuicidal Musculoskeletal: No joint swelling or deformity. Normal range of motion. Assessment and Plan Assessment: Status post right total knee arthroplasty postoperative day 0 Severe osteoarthritis Hypertension Hypothyroidism Palpitations History of back surgery and also left hip and left knee Morbid obesity BMI 41 point DVT prophylaxis as per primary team Plan: Patient will be continued on gentle IV hydration and monitor respiratory status. Continue with pain management, bowel regimen and encourage incentive spirometry. Patient was started back on metoprolol at bedtime and amlodipine starting tomorrow a.m. Hydrochlorothiazide is on hold. Follow-up CBC and BMP tomorrow. Monitor H&H PT OT was consulted. Will continue to follow and further recommendations based on the clinical course. Thank you kindly for your consult.
[2023-12-25] MEDS: LEVOTHYROXINE 112 MCG TAB PO SCH (06:31)
--- NOTE | 2023-12-25 06:59 | P.PN ---
Progress Note - Text Adequate analgesia. No complication from nerve block.
[2023-12-25 08:16] VITALS: BP 117/69; PULSE 58; RESP 18; TEMP 98.1
[2023-12-25 08:33] LABS: HCT 34.1 % (37.2-46.3); HGB 11.3 g/dL (12.0-15.0); MCHC 33.1 g/dL (32.0-37.0); MCV 93.7 FL (80.0-97.0); NRBC Per 100 WBC 0 X 10*3/uL (0.00-0.01); Platelet Count 254 X 10*3/uL (140-440); RBC 3.64 X 10*6/uL (4.10-5.20); RDW 13.2 % (11.5-14.5); WBC 14.93 X 10*3/uL (4.50-10.00)
[2023-12-25 08:54] LABS: BUN/Creat Ratio 24.78 Ratio (12.00-20.00); Blood Urea Nitrogen 22.3 mg/dL (9.0-27.0); Calcium 9.1 mg/dL (8.7-10.3); Carbon Dioxide 21.4 mmol/L (21.6-31.8); Chloride 101 mmol/L (96-109); Glucose 123 mg/dL (70-110); Sodium 138 mmol/L (135-145)
[2023-12-25 09:14] LABS: Basophils # (A) 0.02 X 10*3/uL (0.00-0.10); Basophils % (A) 0.1 %; Eosinophils # (A) 0 X 10*3/uL (0.04-0.35); Eosinophils % (A) 0 %; Lymphocytes # (A) 1.42 X 10*3/uL (0.90-5.00); Lymphocytes % (A) 9.5 %; Monocytes # (A) 1.56 X 10*3/uL (0.20-1.00); Monocytes % (A) 10.4 %; Neutrophils # (A) 11.88 X 10*3/uL (1.80-7.70); Neutrophils % (A) 79.7 %
[2023-12-25 09:15] LABS: RBC Morphology Normal (Normal)
[2023-12-25] MEDS: amLODIPine 10 MG TAB PO SCH (09:28)
[2023-12-25] MEDS: OXYBUTYNIN 15 MG TAB.ER.24 PO SCH (09:28)
--- NOTE | 2023-12-25 09:57 | P.DS ---
Providers Expected date of discharge: 12/25/23 Attending physician: Barry Rob Consults: 12/24/23 08:52 Consult Physician Routine Consulting Provider: Naseem Ortega Consult Reason/Comments: medical management Do you want consulting provider notified?: Yes Primary care physician: Jose F Sandoval - Discharge Diagnosis(es) (1) Osteoarthritis of right knee Current Visit: Yes Status: Acute (2) S/P total knee arthroplasty Current Visit: Yes Status: Acute Hospital Course: This is a 78-year-old female with known history of degenerative arthritis of the right knee. The patient presented for evaluation as an outpatient. After discussion and consideration patient elects to proceed with total knee arthroplasty. The patient is seen preoperatively by Dr. Rob and medically cleared for surgery by their primary care physician. Patient is admitted to [facility] on 12/24/2023 for total knee arthroplasty. The procedure is performed without complication or sequelae. The patient is doing well postoperatively. Labs and vital signs are stable on day of discharge. On day of discharge patient's knee incision is healing well. There is minimal erythema. There is no drainage noted at this time. There is minimal soft tissue swelling to the knee. Patient has full foot and ankle motion without difficulty or pain. Calf is soft and nontender to palpation. Neurovascular status to the right lower extremity is intact. Patient is discharged home in good condition. Please see med rec for accurate list of home medications. Plan - Discharge Summary Discharge Rx Participant: Yes New Discharge Prescriptions: New Aspirin 325 mg PO BID #60 tab Sennosides [Senokot] 2 tab PO DAILY PRN #60 tablet PRN Reason: Constipation HYDROcodone/APAP 7.5-325MG [[place] 7.5-325] 1 - 2 tab PO Q6H PRN #32 tab PRN Reason: Pain No Action Oxybutynin ER [Ditropan XL] 15 mg PO QAM Levothyroxine Sodium 112 mcg PO DAILY Cholecalciferol [Vitamin D3 (25 Mcg = 1000 Iu)] 50 mcg PO DAILY tab Ferrous Sulfate [Iron (65 MG Elemental)] 325 mg PO DAILY hydroCHLOROthiazide [Hydrodiuril] 12.5 mg PO DAILY Ibuprofen [Motrin] 800 mg PO BID Felodipine [Plendil] 10 mg PO DAILY Vitamin E (Dl,Tocopheryl Acet) [Vitamin E (100 Iu = 45MG)] 45 mg PO DAILY [place]-3/Dha/Epa/Fish Oil [Fish Oil 1,000 mg Softgel] 1 each PO DAILY Metoprolol Tartrate [Lopressor] 25 mg PO HS Magnesium 200 mg PO HS Biotin [Biotin Disolve] 5,000 mcg PO DAILY Aspirin 81 mg PO DAILY Discharge Medication List Oxybutynin ER [Ditropan XL] 15 mg PO QAM 10/07/19 [History] Levothyroxine Sodium 112 mcg PO DAILY 06/06/22 [History] Cholecalciferol [Vitamin D3 (25 Mcg = 1000 Iu)] 50 mcg PO DAILY tab 09/24/22 [Rx] Aspirin 81 mg PO DAILY 12/20/23 [History] Biotin [Biotin Disolve] 5,000 mcg PO DAILY 12/20/23 [History] Felodipine [Plendil] 10 mg PO DAILY 12/20/23 [History] Ferrous Sulfate [Iron (65 MG Elemental)] 325 mg PO DAILY 12/20/23 [History] Ibuprofen [Motrin] 800 mg PO BID 12/20/23 [History] Magnesium 200 mg PO HS 12/20/23 [History] Metoprolol Tartrate [Lopressor] 25 mg PO HS 12/20/23 [History] [place]-3/Dha/Epa/Fish Oil [Fish Oil 1,000 mg Softgel] 1 each PO DAILY 12/20/23 [History] Vitamin E (Dl,Tocopheryl Acet) [Vitamin E (100 Iu = 45MG)] 45 mg PO DAILY 12/20/23 [History] hydroCHLOROthiazide [Hydrodiuril] 12.5 mg PO DAILY 12/20/23 [History] Aspirin 325 mg PO BID #60 tab 12/24/23 [Rx] HYDROcodone/APAP 7.5-325MG [[place] 7.5-325] 1 - 2 tab PO Q6H PRN #32 tab 12/24/23 [Rx] Sennosides [Senokot] 2 tab PO DAILY PRN #60 tablet 12/24/23 [Rx] Follow up Appointment(s)/Referral(s): Barry Rob DO [Doctor of Osteopathic Medicine] - 2 Weeks Activity/Diet/Wound Care/Special Instructions: Weightbearing as tolerated with a walker. CPM 5-6h daily as tolerated. Leave dressing intact. Dressing may be removed by home care nurse or by patient in 7 days. Then change dressing twice daily until follow up. May shower with initial dressing intact and after removal. If dressing become saturated, please remove. Recommend use of compression stockings daily until follow up to help prevent swelling and blood clots. May remove at night before sleeping. Please take aspirin 325mg twice daily for 30 days to prevent blood clots. Please follow up with [facility] and call with any questions or concerns, . Discharge Disposition: HOME WITH HOME HEALTH SERVICES
== END 2023-12-25 14:50 | disposition home health service (06) ==
LOC: OR 07:07 → 4SSUR 10:51 → OR 17:51
PROVIDERS: ATTEND Orthopaedic Surgery
DX: M17.11 Unilateral primary osteoarthritis, right knee (principal); G89.18 Other acute postprocedural pain; I10 Essential (primary) hypertension; E78.5 Hyperlipidemia, unspecified; E03.9 Hypothyroidism, unspecified; Z79.890 Hormone replacement therapy; Z79.899 Other long term (current) drug therapy; Z88.0 Allergy status to penicillin; Z88.6 Allergy status to analgesic agent; Z88.9 Allergy status to unspecified drugs, medicaments and biological substances
CPT/HCPCS: 97161; 64999; 64448; 80048; 85025; 73560; 27447; C1713; C1776; C1751; J2250; J0690; J2795; J1170